=== PATIENT | female | born 1985 | race Hispanic/Latino ===

== ENCOUNTER 2018-08-25 13:50 | Emergency (ER) | payer MEDICAID ==
--- NOTE | 2018-08-25 14:02 | ED PDOC ---
Arrival/HPI <Fahad Bean - Last Filed: 08/25/18 16:54> - General Historian: Patient, Family - History of Present Illness Narrative History of Present Illness (Text): 08/25/18 14:01 33 y/o female, no significant pmh, nkda, c/o nasal congestion/cough/nausea/vo miting/diarrhea x 4 days. Pt. stated that she has nasal congestion, associated with coughing, admits nausea/vomiting after excessive coughing, started to have diarrhea yesterday, no headache or abdominal pain, no pelvic pain, no flank pain, no numbness or tingling, no rash, no urinary symptoms, no other medical or psychological complaints. <Ray Burnette - Last Filed: 08/25/18 17:32> - General Time Seen by Provider: 08/25/18 14:01 Past Medical History - Provider Review Nursing Documentation Reviewed: Yes <Ray Burnette - Last Filed: 08/25/18 17:32> Family/Social History - Physician Review Nursing Documentation Reviewed: Yes Family/Social History: Unknown Family HX <Ray Burnette - Last Filed: 08/25/18 17:32> Allergies/Home Meds <Fahad Bean - Last Filed: 08/25/18 16:54> <Ray Burnette - Last Filed: 08/25/18 17:32> Allergies/Adverse Reactions: Allergies No Known Allergies Allergy (Verified 08/25/18 14:17) Review of Systems - Review of Systems Constitutional: absent: Fatigue, Fevers Eyes: absent: Vision Changes ENT: Rhinorrhea. absent: Hearing Changes, Voice Changes, Epistaxis, Sinus Congestion Respiratory: Cough. absent: SOB, Sputum, Wheezing Cardiovascular: absent: Chest Pain Gastrointestinal: Diarrhea, Nausea, Vomiting. absent: Abdominal Pain Musculoskeletal: absent: Arthralgias, Back Pain Skin: absent: Rash, Pruritis Neurological: absent: Headache, Dizziness Psychiatric: absent: Anxiety, Depression, Suicidal Ideation <Ray Burnette - Last Filed: 08/25/18 17:32> Physical Exam Vital Signs Temp Pulse Resp BP Pulse Ox 08/25/18 16:22 92 H 18 138/77 100 08/25/18 14:08 99.0 F 82 18 160/113 H 100 <Fahad Bean - Last Filed: 08/25/18 16:54> Vital Signs Reviewed: Yes Temperature: Afebrile Blood Pressure: Hypertensive Pulse: Regular Respiratory Rate: Normal Appearance: Positive for: Well-Appearing, Non-Toxic, Comfortable Pain Distress: None Mental Status: Positive for: Alert and Oriented X 3 - Systems Exam Head: Present: Atraumatic, Normocephalic Pupils: Present: PERRL Extroacular Muscles: Present: EOMI Conjunctiva: Present: Normal Ears: Present: NORMAL TM, Normal Canal. No: Erythema Mouth: Present: Moist Mucous Membranes Pharnyx: No: ERYTHEMA, EXUDATE, TONSILS ENLARGED Nose (External): Present: Atraumatic. No: Abrasion, Contusion, Laceration Nose (Internal): Present: Normal Inspection, No Active Bleeding, Rhinorrhea. No: Septal Deviation, Septal Hematoma, Epistaxis Neck: Present: Normal Range of Motion, Trachea Midline. No: Meningeal Signs, MIDLINE TENDERNESS, Paraspinal Tenderness, Lymphadenopathy Respiratory/Chest: Present: Clear to Auscultation, Good Air Exchange. No: Respiratory Distress, Accessory Muscle Use, Wheezes, Decreased Breath Sounds, Rales, Retracting, Rhonchi, Tachypneic, Tender to Palpation Cardiovascular: Present: Regular Rate and Rhythm, Normal S1, S2. No: Murmurs Abdomen: No: Tenderness, Distention, Peritoneal Signs, Rebound, Guarding Back: Present: Normal Inspection Upper Extremity: Present: Normal Inspection. No: Cyanosis, Edema Lower Extremity: Present: Normal Inspection. No: Edema Neurological: Present: GCS=15, CN II-XII Intact, Speech Normal, Motor Func Grossly Intact, Gait Normal, Memory Normal Skin: Present: Warm, Dry, Normal Color. No: Rashes Psychiatric: Present: Alert, Oriented x 3, Normal Insight, Normal Concentration <Ray Burnette Q - Last Filed: 08/25/18 17:32> Medical Decision Making - Lab Interpretations Lab Results: 08/25/18 14:45 08/25/18 14:45 Lab Results 08/25/18 14:45: Lipase 81 08/25/18 14:45: Sodium 136, Potassium 4.2, Chloride 100, Carbon Dioxide 24, Anion Gap 16, BUN 5 L, Creatinine 0.6 L, Est GFR ( Amer) > 60, Est GFR (Non-Af Amer) > 60, Random Glucose 104, Calcium 9.0, Magnesium 1.5 L, Total Bilirubin 1.2, AST 198 H, ALT 135 H, Alkaline Phosphatase 111, Total Protein 8.0, Albumin 4.5, Globulin 3.5, Albumin/Globulin Ratio 1.3 08/25/18 14:45: WBC 7.2, RBC 4.73, Hgb 15.2, Hct 44.8, MCV 94.7, MCH 32.1, MCHC 33.9, RDW 12.0, Plt Count 276, MPV 9.9, Gran % 80.7 H, Lymph % (Auto) 11.5 L, [place] % (Auto) 7.5 H, Eos % (Auto) 0.0 L, Baso % (Auto) 0.3, Gran # 5.80, Lymph # (Auto) 0.8 L, [place] # (Auto) 0.5, Eos # (Auto) 0.0, Baso # (Auto) 0.02 08/25/18 14:15: Influenza Typ A,B (EIA) Negative for flu a/b - RAD Interpretation Radiology Orders: 08/25/18 14:25 CHEST PORTABLE [RAD] Stat - Medication Orders Current Medication Orders: Discontinued Medications Diphenhydramine HCl (Benadryl) 50 mg IVP STAT STA Stop: 08/25/18 16:37 Last Admin: 08/25/18 16:45 Dose: 50 mg IVP Administration Document 08/25/18 16:45 SZA (Rec: 08/25/18 16:51 [email or web address] Charges for Administration # of IVP Administrations 1 Famotidine (Pepcid) 20 mg IVP STAT STA Stop: 08/25/18 14:26 Last Admin: 08/25/18 14:33 Dose: 20 mg IVP Administration Document 08/25/18 14:33 SZA (Rec: 08/25/18 14:33 [email or web address] Charges for Administration # of IVP Administrations 1 Sodium Chloride (Sodium Chloride 0.9%) 1,000 mls @ 999 mls/hr IV .Q1H1M STA Stop: 08/25/18 15:25 Last Admin: 08/25/18 14:33 Dose: 999 mls/hr eMAR Start Stop Document 08/25/18 14:33 SZA (Rec: 08/25/18 14:34 [email or web address]) Intravenous Solution Start Date 08/25/18 Start Time 14:34 End Date 08/25/18 End time 15:34 Total Infusion Time 60 Magnesium Sulfate/Dextrose (Magnesium Sulfate 1 Gm/100 Ml D5w) 1 gm in 100 mls @ 100 mls/hr IVPB ONCE ONE Stop: 08/25/18 16:23 Last Admin: 08/25/18 15:45 Dose: 100 mls/hr eMAR Start Stop Document 08/25/18 15:45 SZA (Rec: 08/25/18 16:17 [email or web address]) Intravenous Solution Start Date 08/25/18 Start Time 15:45 End Date 08/25/18 End time 16:45 Total Infusion Time 60 Ondansetron HCl (Zofran Inj) 4 mg IVP STAT STA Stop: 08/25/18 14:26 Last Admin: 08/25/18 14:33 Dose: 4 mg IVP Administration Document 08/25/18 14:33 ENMANUEL (Rec: 08/25/18 14:33 [email or web address]) Charges for Administration # of IVP Administrations 1 <Fahad Bean - Last Filed: 08/25/18 16:54> ED Course and Treatment: 08/25/18 14:24 -labs/rapid flu -CXR -IVF/zofran/pepcid -Observe and reassess 08/25/18 16:36 -BP is 138/77, pt. has facial rash on the forehead/neck/facial cheek but no swelling, no ENT complaints, will give a dose of benadryl, clinically this appear to be viral infection. 08/25/18 17:27 -Urine hcg is negative -Labs show no acute findings except elevation of AST/ALT (drinks socially but no abdominal pain). -Lipase within normal limit. -Rapid flu is negative -Mg 1.5 (mgsulfate 1gm ordered) -Chest xray show no active disease -Case discussed with Dr. Bean and examined by Dr. Bean as well, he agreed on the treatment plan. -Facial rash resolved, feeling much better, no nausea/vomiting/diarrhea in the ER and no recent antibiotic use in the ER, BP stable, all labs and radiology result discussed with the patient for outpatient PMD and GI follow up. -Discharge home with pepcid/zofran, claritin, robitussin dm, stay hydrated, bed rest, avoid alcohol and tylenol as your liver enzyme is elevated, avoid dairy diet until you feel better, follow up with your own pmd and GI within 2 days, return to the ER for any new or worsening signs or symptoms. <Ray Burnette - Last Filed: 08/25/18 17:32> - PA / DRYING MACHINE BACK TENDER / Resident Statement ERICA has examined the patient and agrees with the treatment plan. <Fahad Bean - Last Filed: 08/25/18 16:54> - PA / DRYING MACHINE BACK TENDER / Resident Statement ERICA has reviewed & agrees with the documentation as recorded. <Ray Burnette - Last Filed: 08/25/18 17:32> Disposition/Present on Arrival <Fahad Bean - Last Filed: 08/25/18 16:54> - Present on Arrival Any Indicators Present on Arrival: No History of DVT/PE: No History of Uncontrolled Diabetes: No Urinary Catheter: No History of Decub. Ulcer: No - Disposition Have Diagnosis and Disposition been Completed?: Yes Disposition Time: 16:51 Patient Plan: Discharge <Ray Burnette - Last Filed: 08/25/18 17:32> - Disposition Diagnosis: Hypomagnesemia, Viral syndrome, URI (upper respiratory infection) Disposition: HOME/ ROUTINE Patient Problems: Current Active Problems Problem Status Onset Hypomagnesemia Acute Viral syndrome Acute Condition: IMPROVED Additional Instructions: -Discharge home with pepcid/zofran, claritin, robitussin dm, stay hydrated, bed rest, avoid alcohol and tylenol as your liver enzyme is elevated, avoid dairy diet until you feel better, follow up with your own pmd and GI within 2 days, return to the ER for any new or worsening signs or symptoms. Prescriptions: Famotidine [Pepcid] 20 mg PO BID #28 tab guaiFENesin/Dextromethorphan [guaiFENesin-DM] 10 ml PO QID PRN #250 ml PRN Reason: Other Loratadine [Claritin] 10 mg PO DAILY #10 tab Ondansetron [Zofran] 4 mg PO Q8H PRN #10 tab PRN Reason: Nausea/Vomiting Referrals: Dobbins,Mary V, DO [Primary Care Provider] - Follow up with primary Shaquille Lima MD [Staff Provider] - Follow up with primary Forms: WORK NOTE
[2018-08-25 14:15] VITALS: RESP 18; O2SAT 100
[2018-08-25] MEDS ORDERED: Sodium Chloride 0.9% 1,000 ML IV STA (14:25)
[2018-08-25 15:07] LABS: BASO # 0.02 K/mm3 (0.0-2.0); BASO % 0.3 % (0.0-3.0); GRAN # 5.8 (1.4-6.5); GRAN % 80.7 % (50.0-68.0); HEMOGLOBIN 15.2 g/dL (12.0-16.0); LYMPH # 0.8 (1.2-3.4); LYMPH % 11.5 % (22.0-35.0); MEAN CELL VOLUME 94.7 fl (80.0-105.0); MEAN CORPUSCULAR HEMOGLOBIN 32.1 pg (25.0-35.0); MEAN CORPUSCULAR HGB CONC 33.9 g/dl (31.0-37.0); MEAN PLATELET VOLUME 9.9 fl (7.0-11.0); MONO # 0.5 (0.1-0.6); MONO % 7.5 % (1.0-6.0); RBC 4.73 10^6/uL (3.5-6.1); WHITE BLOOD COUNT 7.2 10^3/ul (4.5-11.0)
[2018-08-25 15:19] LABS: ALB/GLOB RATIO 1.3 (1.1-1.8); ALBUMIN 4.5 g/dL (3.0-4.8); ALT/SGPT 135 U/L (7-56); AST/SGOT 198 U/L (14-36); BLOOD UREA NITROGEN 5 mg/dL (7-21); GFR NON-AFRICAN AMERICAN > 60
[2018-08-25] MEDS ORDERED: Magnesium Sulfate 1 gm in D5W 1 GM/100 ML BAG IVPB ONE (15:24)
[2018-08-25] MEDS ORDERED: DiphenhydrAMINE 50 mg/ml Inj IVP STA (16:36)
[2018-08-25 18:48] VITALS: BP 133/77; PULSE 90; TEMP 99
--- NOTE | 2018-08-25 18:53 | RAD ---
HISTORY: medical clearance COMPARISON: None available. TECHNIQUE: Chest, one view. FINDINGS: LUNGS: No focal consolidation. Please note that chest x-ray has limited sensitivity for the detection of pulmonary masses. PLEURA: No significant pleural effusion identified. No definite pneumothorax . CARDIOVASCULAR: The cardiomediastinal silhouette appears within normal limits of size. OSSEOUS STRUCTURES: No acute osseous abnormality identified. VISUALIZED UPPER ABDOMEN: Unremarkable. OTHER FINDINGS: None. IMPRESSION: No focal consolidation, significant pleural effusion, or definite pneumothorax identified.
== END 2018-08-25 17:45 | disposition home or self-care (01) ==
LOC: ED 13:50
DX: J06.9 Acute upper respiratory infection, unspecified (principal); E83.42 Hypomagnesemia
CPT/HCPCS: 71045; 80053; 83690; 83735; 85025; 87804; 96361; 96365; 96375; 99283; J1200; J2405; J3475; J7030

== ENCOUNTER 2018-08-30 15:25 | Emergency (ER) | payer MEDICAID ==
[2018-08-30] MEDS ORDERED: Sodium Chloride 0.9% 1,000 ML IV STA (16:15)
--- NOTE | 2018-08-30 16:26 | ED PDOC ---
Arrival/HPI - General Chief Complaint: GI Problem Time Seen by Provider: 08/30/18 16:01 Historian: Patient - History of Present Illness Narrative History of Present Illness (Text): 08/30/18 16:23 33 year old female, with no significant past medical history, who presents to the emergency department complaining of nausea, vomiting, and diarrhea x 9 days. Patient states nausea and vomiting are intermittent, however, patient experi ences diarrhea 3 times a day. Stool is a green/brown color. Patient's PMD suggested possible gallstones. Patient denies any fever, chills, chest pain, shortness of breath, back pain, neck pain, headache, dizziness, or any other complaints. PMD: Dr. Dobbins GI: Dr. Mendez 08/30/18 19:00 Time/Duration: > week (9 days) Symptom Onset: Gradual Symptom Course: Unchanged Activities at Onset: Light Context: Home Past Medical History - Provider Review Nursing Documentation Reviewed: Yes - Infectious Disease Hx of Infectious Diseases: None - Cardiac Hx Cardiac Disorders: Yes Hx Hypertension: Yes - Pulmonary Hx Respiratory Disorders: No - Neurological Hx Neurological Disorder: No - HEENT Hx HEENT Disorder: No - Renal Hx Renal Disorder: No - Endocrine/Metabolic Hx Endocrine Disorders: No - Hematological/Oncological Hx Blood Disorders: No - Integumentary Hx Dermatological Disorder: No - Musculoskeletal/Rheumatological Hx Musculoskeletal Disorders: No - Gastrointestinal Hx Gastrointestinal Disorders: Yes Hx Diarrhea: Yes Hx Nausea: Yes - Genitourinary/Gynecological Hx Genitourinary Disorders: No - Psychiatric Hx Psychophysiologic Disorder: No Hx Substance Use: No - Surgical History Other/Comment: HERNIA REPAIR - Anesthesia Hx Anesthesia: No Family/Social History - Physician Review Nursing Documentation Reviewed: Yes Family/Social History: Unknown Family HX Smoking Status: Unknown If Ever Smoked Hx Alcohol Use: No Hx Substance Use: No Allergies/Home Meds Allergies/Adverse Reactions: Allergies No Known Allergies Allergy (Verified 08/30/18 15:27) Home Medications: Home Meds Medication Instructions Recorded Confirmed Loperamide [Imodium] 2 mg PO TID 08/30/18 08/30/18 Ranitidine HCl [Acid Mine Laborer] 150 mg PO DAILY 08/30/18 08/30/18 Review of Systems - Physician Review All systems were reviewed & negative as marked: Yes - Review of Systems Constitutional: Normal Eyes: Normal ENT: Normal Respiratory: Normal. absent: SOB, Cough Cardiovascular: Normal. absent: Chest Pain Gastrointestinal: Diarrhea, Nausea, Vomiting Genitourinary Female: Normal. absent: Dysuria, Frequency Musculoskeletal: Normal. absent: Back Pain, Neck Pain Skin: Normal. absent: Rash Neurological: Normal. absent: Headache, Dizziness Endocrine: Normal Hemo/Lymphatic: Normal Psychiatric: Normal Physical Exam Vital Signs Reviewed: Yes Vital Signs Temp Pulse Resp BP Pulse Ox 08/30/18 15:31 98.7 F 84 16 142/95 H 98 Temperature: Afebrile Blood Pressure: Normal Pulse: Regular Respiratory Rate: Normal Appearance: Positive for: Well-Appearing, Non-Toxic, Comfortable Pain Distress: None Mental Status: Positive for: Alert and Oriented X 3 - Systems Exam Head: Present: Atraumatic, Normocephalic Pupils: Present: PERRL Extroacular Muscles: Present: EOMI Conjunctiva: Present: Normal Mouth: Present: Moist Mucous Membranes Neck: Present: Normal Range of Motion Respiratory/Chest: Present: Clear to Auscultation, Good Air Exchange. No: Respiratory Distress, Accessory Muscle Use Cardiovascular: Present: Regular Rate and Rhythm, Normal S1, S2. No: Murmurs Abdomen: Present: Tenderness (RUQ), Normal Bowel Sounds, Other (- [place]). No: Distention, Peritoneal Signs, Rebound, Guarding, McBurney's Point Tender, Rovsing's Sign Present Back: Present: Normal Inspection Upper Extremity: Present: Normal Inspection. No: Cyanosis, Edema Lower Extremity: Present: Normal Inspection. No: Edema Neurological: Present: GCS=15, CN II-XII Intact, Speech Normal Skin: Present: Warm, Dry, Normal Color. No: Rashes Psychiatric: Present: Alert, Oriented x 3, Normal Insight, Normal Concentration Medical Decision Making ED Course and Treatment: 08/30/18 16:28 Impression: 33 year old female presents to the Emergency department complaining of nausea, vomiting, and diarrhea. r/o AGE, r/o Biliary Colic Plan: -- Labs -- Pepcid -- Zofran -- Sodium CHloride -- Urinalysis -- HCG, qualitative urin -- US abdomen -- Reassess and disposition 08/30/18 - 20:21 Patient's symptoms improved. She is tolerating PO fluids. No n/v in the ED. Abdomen is soft and not tender. US report showed liver with fatty findings. No cholecysititis. Patient was explained US report. she will make sure to follow up with her primary care doctor this week and return to the ED if symptoms worsen or any other concern. - RAD Interpretation Radiology Orders: 08/30/18 16:15 ABDOMEN COMPLETE [US] Stat - Medication Orders Current Medication Orders: Sodium Chloride (Sodium Chloride 0.9%) 1,000 mls @ 1,000 mls/hr IV .Q1H STA Stop: 08/30/18 17:14 Discontinued Medications Famotidine (Pepcid) 20 mg IVP STAT STA Stop: 08/30/18 16:16 Ondansetron HCl (Zofran Inj) 4 mg IVP STAT STA Stop: 08/30/18 16:16 - Scribe Statement The provider has reviewed the documentation as recorded by the Scribe Aggie Celaya All medical record entries made by the Scribe were at my direction and personally dictated by me. I have reviewed the chart and agree that the record accurately reflects my personal performance of the history, physical exam, medical decision making, and the department course for this patient. I have also personally directed, reviewed, and agree with the discharge instructions and disposition. ] Disposition/Present on Arrival - Present on Arrival Any Indicators Present on Arrival: No History of DVT/PE: No History of Uncontrolled Diabetes: No Urinary Catheter: No History of Decub. Ulcer: No History Surgical Site Infection Following: None - Disposition Have Diagnosis and Disposition been Completed?: Yes Diagnosis: Gastroenteritis Disposition: HOME/ ROUTINE Disposition Time: 20:21 Patient Plan: Discharge Condition: IMPROVED Discharge Instructions (ExitCare): Diarrhea in Adolescents and Adults, Gastroenteritis (ED) Additional Instructions: YAO CLAYTON, thank you for letting us take care of you today. Your provider was Brody Raza DO and you were treated for Gastroenteritis. The emergency medical care you received today was directed at your acute symptoms. If you were prescribed any medication, please fill it and take as directed. It may take several days for your symptoms to resolve. Return to the Emergency Department if your symptoms worsen, do not improve, or if you have any other problems. Please contact your doctor or call one of the physicians/clinics you have been referred to that are listed on the Patient Visit Information form that is included in your discharge packet. Bring any paperwork you were given at discharge with you along with any medications you are taking to your follow up visit. Our treatment cannot replace ongoing medical care by a primary care provider outside of the emergency department. Thank you for allowing the [facility] team to be part of your care today. If you had an X-Ray or CT scan: A Radiologist will review the ED reading if any change in treatment is needed we will contact you. If you had a blood, urine, or wound culture: It will take several days for the results, if any change in treatment is needed we will contact you. If you had an STI test: It will take 48 hours for the results. Please call after 1 week if you have not heard back. Prescriptions: Ondansetron ODT [Zofran ODT] 4 mg PO Q6 #14 odt Referrals: Emmanuel Dobbins APN [Primary Care Provider] - Follow up with primary Forms: [employer] (Panamanian), WORK NOTE
[2018-08-30 16:29] LABS: URINE APPEARANCE CLEAR (CLEAR); URINE BILIRUBIN NEGATIVE (NEGATIVE); URINE GLUCOSE (UA) NEGATIVE (NEGATIVE)
[2018-08-30 16:30] LABS: URINE BLOOD NEGATIVE (NEGATIVE); URINE LEUKOCYTE ESTERASE NEGATIVE Leu/uL (NEGATIVE); URINE PROTEIN NEGATIVE mg/dL (<30 mg/dL); URINE UROBILINOGEN 0.2 E.U./dL (<1 E.U./dL)
[2018-08-30 17:07] LABS: WHITE BLOOD COUNT 6.9 10^3/ul (4.5-11.0)
[2018-08-30 17:08] LABS: BASO % 0.4 % (0.0-3.0); GRAN # 5.08 (1.4-6.5); GRAN % 74.2 % (50.0-68.0); HEMOGLOBIN 13.4 g/dL (12.0-16.0); LYMPH # 1.1 (1.2-3.4); LYMPH % 15.9 % (22.0-35.0); MEAN CELL VOLUME 96.4 fl (80.0-105.0); MEAN CORPUSCULAR HEMOGLOBIN 31.8 pg (25.0-35.0); MEAN CORPUSCULAR HGB CONC 32.9 g/dl (31.0-37.0); MEAN PLATELET VOLUME 10.6 fl (7.0-11.0); MONO # 0.6 (0.1-0.6); MONO % 8.5 % (1.0-6.0); RBC 4.22 10^6/uL (3.5-6.1); RED CELL DISTRIBUTION WIDTH 11.9 % (11.5-14.5)
[2018-08-30 17:09] LABS: BASO # 0.03 K/mm3 (0.0-2.0); EOS # 0.1 (0.0-0.7)
[2018-08-30 17:18] LABS: ALB/GLOB RATIO 1.3 (1.1-1.8); ALBUMIN 4.1 g/dL (3.0-4.8); ALT/SGPT 153 U/L (7-56); AST/SGOT 141 U/L (14-36); BLOOD UREA NITROGEN 3 mg/dL (7-21); CALCIUM 9.5 mg/dL (8.4-10.5); GFR NON-AFRICAN AMERICAN > 60; LIPASE 54 U/L (23-300)
[2018-08-30 18:53] VITALS: RESP 19; TEMP 98
[2018-08-30 20:23] VITALS: BP 127/53; PULSE 72; O2SAT 100
--- NOTE | 2018-08-31 12:12 | US ---
Date of service: 08/30/2018 HISTORY: abd pain r/o cholecystitis COMPARISON: None. TECHNIQUE: Sonographic evaluation of the abdomen. FINDINGS: LIVER: Measures 19.1 cm. Diffusely increased echogenicity of the liver parenchyma. Consistent with fatty infiltration. Smooth contour. No mass. No biliary ductal dilatation. GALLBLADDER: Unremarkable. No gallstones. COMMON BILE DUCT: Measures 4 mm. No stones. No dilatation. PANCREAS: Unremarkable as visualized. No mass. No ductal dilatation. RIGHT KIDNEY: Measures 11.1cm. Normal echogenicity. No calculus, mass, or hydronephrosis. LEFT KIDNEY: Measures 10.8cm. Normal echogenicity. No calculus, mass, or hydronephrosis. SPLEEN: Normal in size and contour. No mass. AORTA: No aneurysmal dilatation. IVC: Unremarkable. OTHER FINDINGS: Mild hepatomegaly with diffuse fatty infiltration. Otherwise unremarkable examination. The preliminary findings for this examination were reported by [facility] Radiology at 7:45 p.m. on 08/30/2018. There is concurrence of this report with the preliminary findings. IMPRESSION: Unremarkable abdominal sonogram.
== END 2018-08-30 20:21 | disposition home or self-care (01) ==
LOC: ED 15:25
DX: K52.9 Noninfective gastroenteritis and colitis, unspecified (principal); I10 Essential (primary) hypertension
CPT/HCPCS: 76700; 80053; 81003; 83690; 83735; 84703; 85025; 96361; 96374; 96375; 99285; J2405; J7030